=== PATIENT | female | born 1985 | race Caucasian/White ===

== ENCOUNTER 2017-02-07 13:41 | Emergency (ER) | payer BC ==
[~2017-02-07] VITALS: Ht 160 cm; Wt 72.6 kg
[2017-02-07] MEDS ORDERED: Motrin,Rufen800 MG PO (15:56)
[2017-02-07] MEDS ORDERED: CYCLOBENZAPRINE5 M3 PO (15:56)
== END 2017-02-07 16:08 | disposition home or self-care (01) ==
LOC: ED 13:41
DX: S16.1XXA Strain of muscle, fascia and tendon at neck level, initial encounter (principal); S39.012A Strain of muscle, fascia and tendon of lower back, initial encounter; M25.522 Pain in left elbow; M62.838 Other muscle spasm; F17.200 Nicotine dependence, unspecified, uncomplicated; Z88.0 Allergy status to penicillin; Z88.6 Allergy status to analgesic agent; Z88.5 Allergy status to narcotic agent; X58.XXXA Exposure to other specified factors, initial encounter; Y93.89 Activity, other specified; Y92.59 Other trade areas as the place of occurrence of the external cause; Y99.9 Unspecified external cause status

== ENCOUNTER 2017-02-28 19:50 | Emergency (ER) | payer BC ==
[~2017-02-28] VITALS: Ht 160 cm; Wt 71.7 kg
[~2017-02-28 19:50] MED LIST: CYCLOBENZAPRINE5 M3 PO; Motrin,Rufen800 MG PO
== END 2017-02-28 22:09 | disposition home or self-care (01) ==
LOC: ED 19:50
DX: S16.1XXA Strain of muscle, fascia and tendon at neck level, initial encounter (principal); F17.200 Nicotine dependence, unspecified, uncomplicated; Z88.0 Allergy status to penicillin; Z88.6 Allergy status to analgesic agent; X58.XXXA Exposure to other specified factors, initial encounter; Y93.89 Activity, other specified; Y92.59 Other trade areas as the place of occurrence of the external cause; Y99.9 Unspecified external cause status

== ENCOUNTER 2017-04-17 22:58 | Emergency (ER) | payer BC ==
[~2017-04-17] VITALS: Ht 160 cm; Wt 72.1 kg
[2017-04-17] MEDS ORDERED: AVPAK AZITHROM250 M1 PO (23:11)
== END 2017-04-17 23:29 | disposition home or self-care (01) ==
LOC: ED 22:58
DX: H66.92 Otitis media, unspecified, left ear (principal); F17.200 Nicotine dependence, unspecified, uncomplicated; Z88.0 Allergy status to penicillin; Z88.6 Allergy status to analgesic agent

== ENCOUNTER 2017-06-22 14:20 | Inpatient (IN) | payer BC ==
[~2017-06-22] VITALS: Ht 157.4 cm; Wt 73.0 kg
[2017-06-22] VITALS (16 sets, daily range): BP systolic 78–112; BP diastolic 37–64
[~2017-06-22 14:20] MED LIST changes: +AVPAK AZITHROM250 M1 PO
[2017-06-22 15:11] LABS: HEMATOCRIT 42.4 % (37.0-47.0); HEMOGLOBIN 14.2 g/dl (12.0-16.0); MEAN CELL VOLUME 88.7 fl (81.0-99.0); MEAN CORPUSCULAR HGB 29.7 pg (27.0-31.0); MEAN CORPUSCULAR HGB CONC 33.5 g/dl (33.0-37.0); MEAN PLATELET VOLUME 10.7 fl (9.6-12.3); PLATELET COUNT AUTOMATED 367 10*3/uL (130-400); RED BLOOD COUNT 4.78 10*6/uL (4.10-5.10); RED CELL DISTRI WIDTH 12.5 % (0-14.5); WHITE BLOOD COUNT 28.3 10*3/uL (4.8-10.8)
[2017-06-22 15:25] LABS: ALBUMIN 3.4 gm/dl (3.1-4.5); BILIRUBIN, TOTAL 2.7 mg/dl (0.2-1.0); POTASSIUM 3.4 mmol/L (3.5-5.1); TOTAL PROTEIN 7.9 gm/dL (6.4-8.2)
[2017-06-22 15:25] LABS: BILIRUBIN 3+ (NEGATIVE); BLOOD TRACE-INTACT (NEGATIVE); CLARITY CLOUDY (CLEAR); COLOR ORANGE (YELLOW); GLUCOSE TRACE (NEGATIVE); KETONE 1+ (NEGATIVE); LEUKO ESTERASE 2+ (NEGATIVE); NITRITE POSITIVE (NEGATIVE); PH 5.5 (5.0-9.0); PROTEIN 2+ (NEGATIVE); SPECIFIC GRAVITY 1.025 (1.005-1.030)
[2017-06-22 15:28] LABS: LYMPHOCYTE # 1.1 10*3/uL (1.3-4.4); MONOCYTE # 1.4 10*3/uL (0.1-1.0); NEUTROPHIL # 25.8 10*3/uL (2.3-7.9); NEUTROPHILS 91 % (47-73); PLATELET SUFFICIENCY NORMAL (NORMAL); TOTAL CELLS COUNTED 100 #CELLS; VACUOLATION OF NEUTROPHILS SLIGHT
[2017-06-22 15:34] LABS: WBC 21-30 wbc/hpf (0-5)
[2017-06-22 15:35] LABS: BACTERIA 2+; URINE REFLEX COMMENT YES (NO)
[2017-06-22 17:07] LABS: LA>2 REFLEX 2 HR DRAW NOW
[2017-06-22 19:24] LABS: LA>2 REFLEX 4 HR DRAW NOW
== END 2017-06-22 23:05 | disposition short-term general hospital (02) | DRG 871 ==
LOC: ED 14:20 → EDHOLD 16:53 → ICCU 17:05
PROVIDERS: Physician Assistant
DX: A41.9 Sepsis, unspecified organism (principal); J96.00 Acute respiratory failure, unspecified whether with hypoxia or hypercapnia; N17.0 Acute kidney failure with tubular necrosis; K81.0 Acute cholecystitis; R65.21 Severe sepsis with septic shock; D72.0 Genetic anomalies of leukocytes; E86.0 Dehydration; N30.01 Acute cystitis with hematuria; E66.3 Overweight; D72.821 Monocytosis (symptomatic); D72.810 Lymphocytopenia; E80.6 Other disorders of bilirubin metabolism; R74.0 Nonspecific elevation of levels of transaminase and lactic acid dehydrogenase [LDH]; R73.9 Hyperglycemia, unspecified; E87.6 Hypokalemia; F17.210 Nicotine dependence, cigarettes, uncomplicated; Z88.8 Allergy status to other drugs, medicaments and biological substances; Z88.0 Allergy status to penicillin; Z86.718 Personal history of other venous thrombosis and embolism; Z79.01 Long term (current) use of anticoagulants; Z86.711 Personal history of pulmonary embolism; Z83.3 Family history of diabetes mellitus; Z82.49 Family history of ischemic heart disease and other diseases of the circulatory system; Z71.6 Tobacco abuse counseling; Z68.29 Body mass index [BMI] 29.0-29.9, adult

== ENCOUNTER 2018-04-16 12:39 | Emergency (ER) | payer BC ==
[~2018-04-16] VITALS: Ht 154.9 cm; Wt 79.4 kg
[2018-04-16] MEDS ORDERED: PREDNISONE10 MG PO (13:00)
== END 2018-04-16 13:03 | disposition home or self-care (01) ==
LOC: ED 12:39
DX: M25.532 Pain in left wrist (principal); M25.531 Pain in right wrist; R03.0 Elevated blood-pressure reading, without diagnosis of hypertension; E66.3 Overweight; F17.200 Nicotine dependence, unspecified, uncomplicated; Z88.0 Allergy status to penicillin; Z88.8 Allergy status to other drugs, medicaments and biological substances; Z68.25 Body mass index [BMI] 25.0-25.9, adult; Z86.718 Personal history of other venous thrombosis and embolism